=== PATIENT | male | born 1990 | race Caucasian/White ===

== ENCOUNTER 2021-05-26 11:12 | Emergency (ER) | payer OTHER ==
[~2021-05-26] VITALS: Ht 180.3 cm; Wt 85.3 kg
[2021-05-26 11:16] VITALS: BP 125/80
--- NOTE | 2021-05-26 11:25 | NUR ---
PT AMBULATED TO BED
--- NOTE | 2021-05-26 11:42 | NUR ---
30 Y/O MALE C/O ABD PAIN SINCE THURSDAY. STATES NAUSEA/VOMITING/DIARRHEA. PT STATES INTERMITTENT 7/10 SHARP PAIN. WITH LOSS OF APPETITE. ACTIVE BOWEL SOUNDS. PAIN UPON PALPATION. MEDHX: DENIES NKA
[2021-05-26] MEDS ORDERED: NACL 0.9% 1,000 ML IV ONE (11:55)
--- NOTE | 2021-05-26 12:08 | NUR ---
BLOOD LABS COLLECTED AND WALKED TO LAB
[2021-05-26 12:17] LABS: BASOPHILS # (AUTO) 0.2 K/uL (0.00-0.22); BASOPHILS % (AUTO) 1.9 % (0.0-2.0); EOSINOPHILS # (AUTO) 0.1 K/uL (0-0.4); EOSINOPHILS % (AUTO) 0.6 % (0.0-4.0); HEMATOCRIT 47.6 % (36-52); HEMOGLOBIN 16.1 g/dL (12.0-18.0); LYMPHOCYTES # (AUTO) 1.2 K/uL (2.0-11.5); MEAN CORPUSCULAR HEMOGLOBIN 31 pg (27-31); MEAN CORPUSCULAR HGB CONC 34 g/dL (33-37); MEAN CORPUSCULAR VOLUME 90.8 fL (80-94); MONOCYTES # (AUTO) 1.1 K/uL (0.8-1.0); MONOCYTES % (AUTO) 11.7 % (1.7-9.3); NEUTROPHILS # (AUTO) 7.2 K/uL (1.8-7.7); NEUTROPHILS % (AUTO) 73.8 % (42.2-75.2); PLATELET COUNT (AUTO) 274 K/uL (140-450); RED BLOOD CELL COUNT(AUTO) 5.25 MIL/uL (4.20-6.10); RED CELL DISTRIBUTION WIDTH 13.2 % (11.6-13.7); WHITE BLOOD COUNT (AUTO) 9.7 K/uL (4.8-10.8)
[2021-05-26 12:31] LABS: ALBUMIN 3.7 g/dL (3.4-5.0); ANION GAP 16.2 (8-16); CARBON DIOXIDE 24.8 mmol/L (21-32); CREATININE 0.7 mg/dL (0.6-1.3); TOTAL BILIRUBIN 0.8 mg/dL (0.0-1.0)
[2021-05-26 13:54] LABS: ANION GAP 15.9 (8-16); CARBON DIOXIDE 23.2 mmol/L (21-32); CREATININE 0.9 mg/dL (0.6-1.3); POTASSIUM 5.1 mmol/L (3.5-5.1)
[2021-05-26] MEDS ORDERED: ONDA-24 SL (14:00)
[2021-05-26] MEDS ORDERED: ACET-10509 PO (14:00)
[2021-05-26 14:09] VITALS: BP 127/65
--- NOTE | 2021-05-26 14:09 | NUR ---
Patient discharged with v/s stable. Written and verbal after care instructions given and explained. Patient alert, oriented and verbalized understanding of instructions. Ambulatory with steady gait. All questions addressed prior to discharge. ID band removed. Patient advised to follow up with PMD. Rx of TYLENOL EXTRA STRENGTH TAB AND ZOFRAN ODT given. Patient educated on indication of medication including possible reaction and side effects. Opportunity to ask questions provided and answered.
== END 2021-05-26 14:09 | disposition home or self-care (01) ==
LOC: EDBD 11:12 → MED 11:12
DX: K52.9 Noninfective gastroenteritis and colitis, unspecified (principal)
CPT/HCPCS: 36415; 80048; 80053; 81002; 83690; 85025; 93005; 96360; 99284; J7030

== ENCOUNTER 2021-10-31 20:12 | Emergency (ER) | payer OTHER ==
[~2021-10-31] VITALS: Ht 180.3 cm; Wt 83.9 kg
[~2021-10-31 20:12] MED LIST: ACET-10509 PO; ONDA-188 SL
[2021-10-31 20:16] VITALS: BP 125/61
--- NOTE | 2021-10-31 20:16 | NUR ---
PT AMBULATED TO BED #1
--- NOTE | 2021-10-31 20:17 | NUR ---
C/O left index finger laceration x today. Patient reported, fell and left hand hit metal and cut himself by accident at work place. ~ 1300 PM. (Work with [employer] business) Hx: NONE Sx : NONE
--- NOTE | 2021-10-31 20:41 | NUR ---
Dr. Parsons at bedside to exam patient.
[2021-10-31] MEDS ORDERED: CEPH-588 PO (21:32)
[2021-10-31] MEDS ORDERED: LIDOCAINE MPF 1% 5 ML ONE (21:39)
[2021-10-31] MEDS ORDERED: LIDOCAINE MPF 1% 10 MG/ML VIAL INJ ONE (21:40)
--- NOTE | 2021-10-31 22:01 | NUR ---
Patient has a 1.5 cm laceration to left index finger. Dr. Parsons applied sutures using sterile technique. Edges well approximated. Site cleansed with NSS. No bleeding noted. Pt tolerated well.
[2021-10-31 22:30] VITALS: BP 125/61
== END 2021-10-31 22:30 | disposition home or self-care (01) ==
LOC: MED 20:12
DX: S61.412A Laceration without foreign body of left hand, initial encounter (principal); Z79.899 Other long term (current) drug therapy; X58.XXXA Exposure to other specified factors, initial encounter; Y93.89 Activity, other specified; Y92.89 Other specified places as the place of occurrence of the external cause; Y99.8 Other external cause status
CPT/HCPCS: 12001; 99282; J2001

== ENCOUNTER 2021-11-25 17:10 | Emergency (ER) | payer OTHER ==
[~2021-11-25] VITALS: Ht 180.3 cm; Wt 86.2 kg
[~2021-11-25 17:10] MED LIST changes: +CEPH-588 PO
[2021-11-25 17:14] VITALS: BP 130/70
--- NOTE | 2021-11-25 17:18 | NUR ---
PT AMB TO [facility]
--- NOTE | 2021-11-25 17:20 | NUR ---
KAY REYES EXAMINING PT
--- NOTE | 2021-11-25 17:20 | NUR ---
BIB SELF FOR LEFT INDEX FINGER SUTURE REMOVAL. SUTURE PLACED 10/31/21. DENIES N/V/D; SKIN IS PINK/WARM/DRY; AAOX4 WITH EVEN AND STEADY GAIT; LUNGS CLEAR BL; HR EVEN AND REGULAR; PT DENIES ANY FEVER, CP, SOB, OR COUGH AT THIS TIME; PATIENT STATES PAIN OF 0/10 AT THIS TIME.
== END 2021-11-25 17:33 | disposition home or self-care (01) ==
LOC: MED 17:10
DX: S61.211D Laceration without foreign body of left index finger without damage to nail, subsequent encounter (principal); Z79.899 Other long term (current) drug therapy; X58.XXXD Exposure to other specified factors, subsequent encounter
CPT/HCPCS: 99281